=== PATIENT | male | born 1965 | race Hispanic/Latino ===

== ENCOUNTER 2021-09-08 17:08 | Emergency (ER) | payer SELFPAY ==
[2021-09-08 17:20] VITALS: BP 136/73; PULSE 88; RESP 16; TEMP 36.8; O2SAT 99
--- NOTE | 2021-09-08 17:36 | ED.URI ---
HPI - URI/Sore Throat General Chief Complaint: Fever Stated Complaint: fever Time Seen by Provider: 09/08/21 17:37 Source: patient, RN notes reviewed and old records reviewed Mode of arrival: ambulatory Limitations: no limitations History of Present Illness HPI Narrative: 55-year-old male who presents to [facility] with complaints of fevers which are low-grade with some nausea when he eats for the past 4 days. Patient denies any diarrhea or any vomiting, denies any body aches, reports some headache discomfort and occasional cough. Patient has not had COVID or flu vaccinations. Patient states that he has been taking some NyQuil and Tylenol. Patient voices history of GERD but does not take daily mediations. MD elicited complaint: fever, cough and other (nausea) Treatments prior to arrival: acetaminophen and other (Nyquil) Related Data Home Medications Medication Instructions Recorded Confirmed No Home Medications 09/08/21 09/08/21 Allergies Allergy/AdvReac Type Severity Reaction Status Date / Time No Known Allergies Allergy Verified 09/08/21 17:24 Review of Systems Review of Systems: CONSTITUTIONAL: Positive fever,no chills, or sweats.feels flushed EYES: Denies visual changes, redness, or discharge. ENT: Denies rhinorrhea, congestion, sore throat, or otalgia. CARDIOVASCULAR: Denies chest pain, palpitations, or edema. RESPIRATORY: some cough denies dyspnea. GASTROINTESTINAL: Denies abdominal pain,positive for nausea,no vomiting, or diarrhea. GENITOURINARY: Denies dysuria or hematuria. SKIN: Denies rash or itching. MUSCULOSKELETAL: Denies back pain, joint pain, or myalgia. NEUROLOGIC: Positive for headache, numbness, or weakness. PSYCHIATRIC: Denies anxiety or depression. All systems reviewed & are unremarkable except as noted in HPI and below PMFSH Past Medical History Medical History (Updated 09/09/21 @ 00:00 by Al Rogers) GERD (gastroesophageal reflux disease) Social History Social History (Updated 09/10/21 @ 12:55 by Kailey Henao NP) Smoking status: Never smoker Alcohol intake: unknown Substance use: never Living arrangements: with family Gender identity (if verbalized by the patient): Male Comments At time of signature, agree with nursing past medical, surgical, social and family history. There is no relevant family history pertinent to the presenting complaint Exam Narrative: GENERAL: Well-appearing, well-nourished, and in no acute distress. HEAD: Normocephalic, atraumatic. EYES: PERRLA and EOMI. ENT: Nares clear, no rhinorrhea or epistaxis. Mucous membranes moist.TM;s normal with good light reflex, throat pink with no lesions or exudates,or tonsil swelling NECK: Supple.no lymphadenopathy CHEST: Clear to auscultation. No respiratory distress.reports some cough, SAO2 99% on room air HEART: Regular rate and rhythm. No murmur heard. Normal peripheral pulses. ABDOMEN: Soft, nontender to palpation, nondistended, normal active bowel sounds. EXTREMITIES: Normal range of motion. No edema. SKIN: Warm, dry, no rash. NEURO: No focal deficits. Alert and oriented x3. Course Course Level of Care: Express Care Visit Vital Signs Vital signs: Vital Signs Temperature 36.8 C 09/08/21 17:20 Pulse Rate 88 09/08/21 17:20 Respiratory Rate 16 09/08/21 17:20 Blood Pressure 136/73 09/08/21 17:20 Pulse Oximetry 99 09/08/21 17:20 Temperature 36.8 C 09/08/21 17:20 Pulse Rate 88 09/08/21 17:20 Respiratory Rate 16 09/08/21 17:20 Blood Pressure 136/73 09/08/21 17:20 Pulse Oximetry 99 09/08/21 17:20 MDM - URI/Sore Throat Differential Diagnosis Differential diagnosis: Likely upper respiratory infection, viral infection, influenza and other (Covid, gastroenteritis) Medical Records Attestation: I reviewed the patient's medical records. Lab Data Attestation: I reviewed the patient's lab results. Lab results narrative: Influenza A negative, influenza B negative. Co
== END 2021-09-08 18:20 | disposition home or self-care (01) ==
PROVIDERS: Emergency Provider Registered Nurse
DX: K52.9 Noninfective gastroenteritis and colitis, unspecified (principal); Z20.822 Contact with and (suspected) exposure to COVID-19; K21.9 Gastro-esophageal reflux disease without esophagitis
CPT/HCPCS: 87426; 87804; 99203; C9803; G0463